=== PATIENT | male | born 1975 | race Hispanic/Latino ===

== ENCOUNTER 2019-02-25 08:15 | Emergency (ER) | payer MEDICAID, SELFPAY ==
[2019-02-25] MEDS ORDERED: Fluorescein Opthalmic Strip ONE (09:38)
[2019-02-25] MEDS ORDERED: Proparacaine 0.5% Opth 15 ML BOT ONE (09:38)
== END 2019-02-25 10:36 | disposition home or self-care (01) ==
LOC: ERS 08:15
DX: T15.02XA Foreign body in cornea, left eye, initial encounter (principal)
CPT/HCPCS: 65220